=== PATIENT | female | born 1990 | race Caucasian/White ===

== ENCOUNTER 2017-06-02 08:31 | Emergency (ER) | payer OTHER ==
[~2017-06-02] VITALS: Ht 160 cm; Wt 59.0 kg
[2017-06-02 08:46] VITALS: BP 117/71; Ht 160 cm; Wt 59.0 kg
== END 2017-06-02 09:35 | disposition home or self-care (01) ==
LOC: ED 08:31
DX: J02.9 Acute pharyngitis, unspecified (principal); Z88.1 Allergy status to other antibiotic agents
CPT/HCPCS: 82962